=== PATIENT | female | born 1980 | race Two or more races ===

== ENCOUNTER 2024-04-23 04:15 | Day surgery (SDC) | payer OTHER ==
[2024-04-19 13:33] VITALS: BMI 22.6
[2024-04-23] MEDS ORDERED: oxyCODONE HCL 5 MG TABLET PO PRN (09:12)
[2024-04-23] MEDS ORDERED: PROMETHAZINE HCL 25 MG/1 ML VIAL IVPB PRN (09:12)
[2024-04-23] MEDS ORDERED: ONDANSETRON 4 MG/2 ML VIAL IVPUSH PRN (09:12)
[2024-04-23] MEDS ORDERED: LACTATED RINGERS SOLUTION 1,000 ML IV SCH (09:15)
[2024-04-23] MEDS ORDERED: MIDAZOLAM HCL 2 MG/2 ML SINGLE DOSE VIAL ONE (09:29)
[2024-04-23] MEDS ORDERED: FENTANYL CITRATE/PF 50 MCG/ML VIAL ONE (09:29)
[2024-04-23] MEDS ORDERED: PROPOFOL 20 ML ONE (09:29)
[2024-04-23] MEDS ORDERED: LIDOCAINE HCL/PF 2% SDV 5ML VIAL ONE (09:30)
[2024-04-23] MEDS ORDERED: KETOROLAC TROMETHAMINE 30 MG/1 ML VIAL ONE (09:46)
[2024-04-23] MEDS ORDERED: DEXAMETHASONE SOD PHOSPHATE 4 MG/1 ML VIAL ONE (09:46)
[2024-04-23] MEDS ORDERED: ONDANSETRON 4 MG/2 ML VIAL ONE (09:46)
[2024-04-27 09:53] VITALS: BP 128/76; PULSE 60; RESP 14; TEMP 97.6
== END 2024-04-23 12:15 | disposition home or self-care (01) ==
LOC: JASU-SURG 04:15
PROVIDERS: ATTEND Obstetrics & Gynecology Obstetrics
PROC: 0UPD8HZ Removal of Contraceptive Device from Uterus and Cervix, Via Natural or Artificial Opening Endoscopic (ICD-10-PCS; principal; 2024-04-23 09:30)
PROC: 0UDB8ZX Extraction of Endometrium, Via Natural or Artificial Opening Endoscopic, Diagnostic (ICD-10-PCS; 2024-04-23 09:30)
DX: T83.32XA Displacement of intrauterine contraceptive device, initial encounter (principal); N92.0 Excessive and frequent menstruation with regular cycle; Y76.8 Miscellaneous obstetric and gynecological devices associated with adverse incidents, not elsewhere classified; Y92.9 Unspecified place or not applicable
CPT/HCPCS: 58300; 58558; J7297; 81025; 88305-TC; 94760